=== PATIENT | male | born 2000 | race Caucasian/White ===

== ENCOUNTER 2018-08-13 10:15 | Day surgery (SDC) | payer BC ==
[~2018-08-13] VITALS: Ht 175.3 cm; Wt 91.5 kg
[~2018-08-13 10:15] MED LIST: LIDOCAINE 1%-EPI 1:100K, 20ML ONE; ROPIvacaine/PF 0.5%, 30 ML ONE
[2018-08-13 10:45] VITALS: BP 123/86
[2018-08-13] MEDS ORDERED: LACTATED RINGERS 1,000 ML IV SCH (10:47)
[2018-08-13] MEDS ORDERED: LAMO200T3 PO (10:50)
[2018-08-13] MEDS ORDERED: ARIP10TA33 PO (10:50)
[2018-08-13] MEDS ORDERED: MELO15TA24 PO (10:50)
[2018-08-13] MEDS ORDERED: HYDR25TA11 PO (10:50)
[2018-08-13] MEDS ORDERED: CLON0.2T PO (10:50)
[2018-08-13] MEDS ORDERED: ACETAMINOPHEN 500 MG TABLET PO STA (10:51)
[2018-08-13] MEDS ORDERED: GABAPENTIN 300 MG CAPSULE PO STA (10:51)
[2018-08-13] MEDS ORDERED: MIDAZOLAM 1 MG/ML, 2ML ONE (11:13)
[2018-08-13] MEDS ORDERED: FENTANYL PF 250 MCG/5ML ONE (11:14)
[2018-08-13] MEDS ORDERED: CEFAZOLIN 1,000 MG ONE (12:44)
[2018-08-13] MEDS ORDERED: ROCURONIUM 10 MG/ML,10ML ONE (12:44)
[2018-08-13] MEDS ORDERED: DEXAMETHASONE 4 MG/ML, 1ML ONE (12:44)
[2018-08-13] MEDS ORDERED: SUCCINYLCHOLINE 20 MG/ML, 10ML ONE (12:44)
[2018-08-13] MEDS ORDERED: ONDANSETRON 2MG/ML, 2ML ONE (12:44)
[2018-08-13] MEDS ORDERED: PROPOFOL 10 MG/ML, 20ML ONE (12:44)
[2018-08-13] MEDS ORDERED: KETOROLAC 30 MG/1 ML IV PRN (13:30)
[2018-08-13] MEDS ORDERED: MEPERIDINE/PF 25MG/0.5ML IVPush PRN (13:30)
[2018-08-13] MEDS ORDERED: LABETALOL 5MG/ML, 20ML IV PRN (13:30)
[2018-08-13] MEDS ORDERED: ALBUTEROL SULFATE 2.5 MG/3 ML NPPB PRN (13:30)
[2018-08-13] MEDS ORDERED: hydrALAzine 20 MG/ML, 1ML IV PRN (13:30)
[2018-08-13] MEDS ORDERED: OXYcodone 5 MG/5 ML ORAL.SOL UDC PO PRN (13:30)
[2018-08-13] MEDS ORDERED: PROMETHAZINE 25 MG/ML, 1ML IV PRN (13:30)
[2018-08-13] MEDS ORDERED: ONDANSETRON 2MG/ML, 2ML IVPush PRN (13:30)
[2018-08-13] MEDS ORDERED: METOCLOPRAMIDE 5 MG/ML, 2ML IV PRN (13:30)
[2018-08-13] MEDS: FENTANYL PF 100 MCG/2ML IV PRN ×2 (13:52→14:12)
[2018-08-13] MEDS ORDERED: KETOROLAC 30 MG/1 ML ONE (13:55)
[2018-08-13] MEDS ORDERED: OXYcodone 5 MG/5 ML ORAL.SOL UDC ONE (13:56)
[2018-08-13] MEDS ORDERED: FENTANYL PF 100 MCG/2ML ONE (13:56)
[2018-08-13] MEDS ORDERED: MEPERIDINE/PF 25MG/ML,1ML ONE (13:56)
[2018-08-13] MEDS: HYDROmorphone 1 MG/ML, 1ML INJ IV PRN ×2 (14:17→14:25)
[2018-08-13] MEDS ORDERED: HYDROmorphone 2 MG/ML, 1ML ONE (14:23)
== END 2018-08-13 16:10 | disposition home or self-care (01) ==
LOC: OUT 10:15
PROVIDERS: ATTEND Orthopaedic Surgery
DX: M22.01 Recurrent dislocation of patella, right knee (principal); M94.261 Chondromalacia, right knee; J45.909 Unspecified asthma, uncomplicated; E11.9 Type 2 diabetes mellitus without complications; F17.210 Nicotine dependence, cigarettes, uncomplicated; Z72.89 Other problems related to lifestyle; Z98.890 Other specified postprocedural states; Z82.61 Family history of arthritis; Z82.3 Family history of stroke
CPT/HCPCS: 27418; 29877; 64447; C1713; J0330; J0690; J1100; J1170; J1885; J2175; J2250; J2405; J2704; J2795; J3010; J3490; J7120